=== PATIENT | male | born 1980 | race Caucasian/White ===

== ENCOUNTER 2017-11-19 04:22 | Emergency (ER) | payer BC ==
[2017-11-19] MEDS ORDERED: NS 0.9% 1000 ML* 1,000 ML IV ONE (04:42)
[2017-11-19] MEDS ORDERED: Morphine INJ* 10 MG/ML 1 ML CARPUJECT IV ONE (04:42)
[2017-11-19] MEDS ORDERED: Metoclopramide IV* 5 MG/ML 2 ML VIAL IV ONE (04:42)
[2017-11-19] MEDS ORDERED: Morphine VIAL* 4 MG/ML VIAL (1 ml vial) IV ONE ×2 (05:05→07:31)
[2017-11-19 05:09] LABS: Urine Appearance Clear; Urine Blood Negative (Negative); Urine Color Straw; Urine Ketones Negative (Negative); Urine Protein Negative (Negative); Urine Specific Gravity 1.006 (1.010-1.030); Urine Urobilinogen Negative (Negative)
[2017-11-19 05:31] LABS: ABS Basophils 0.1 10^3/ul (0-0.2); ABS Eosinophils 0.2 10^3/ul (0-0.6); ABS Lymphocytes 1.9 10^3/ul (1.0-4.8); ABS Nucleated RBC 0 10^3/ul; Eosinophil % 1.3 % (0-6); Hematocrit 42 % (42-52); Hemoglobin 13.9 g/dl (14.0-18.0); Lymphocyte % 15.8 % (25-47); Mean Corpuscular HGB Conc 33 g/dl (31-36); Mean Corpuscular Hemoglobin 28 pg (27-31); Mean Corpuscular Volume 84 fL (80-94); Mean Platelet Volume 9.4 um3 (7.4-10.4); Nucleated Red Blood Cells % 0.1; Platelet Count 206 10^3/ul (150-450); Red Blood Count 5.04 10^6/ul (4.0-5.4); Red Cell Distribution Width 14 % (10.5-15); White Blood Count 12.2 10^3/ul (3.5-10.8)
[2017-11-19 05:45] LABS: EGFR Non-African American 97.4 (>60)
[2017-11-19 05:48] LABS: INR 0.94 (0.77-1.02)
[2017-11-19] MEDS ORDERED: Iohexol 300* (CONTRAST) 10 ML SDV IV ONE (06:02)
--- NOTE | 2017-11-19 06:52 | ED ---
Betsy Jacobo Simon, scribed for Tami Macais MD on 11/19/17 at 0538 . Abdominal Pain/Male - HPI Summary HPI Summary: This patient is a 37 year old male presenting to [facility] accompanied by family with a chief complaint of lower abdominal pain rated 8/10 since 2099 last night. Denies N/V/D. Hx diverticulitis and patient states symptoms are similar, Sx once persisted for 1.5 months, had surgery for abscess removal. RLQ tenderness. Dysuria, frequency. Patient reports good appetite. - History of Current Complaint Chief Complaint: EDAbdPain Stated Complaint: ABD PAIN Hx Obtained From: Patient Onset/Duration: Lasting Hours - Since 2099 last night Timing: Constant Severity Initially: Moderate Severity Currently: Moderate Pain Intensity: 7 Pain Scale Used: 0-10 Numeric Location: Discrete At: RLQ Associated Signs And Symptoms: Positive: Urinary Symptoms - Dysuria Similar Episode/Dx As:: Diverticulitis - Allergies/Home Medications Allergies/Adverse Reactions: Allergies Allergy/AdvReac Type Severity Reaction Status Date / Time No Known Allergies Allergy Verified 03/17/13 20:07 Home Medications: Home Medications Cetirizine* [ZyrTEC 10 MG TAB*] 10 mg PO DAILY 11/19/17 [History Confirmed 11/19] PMH/Surg Hx/FS Hx/Imm Hx GI History: Reports: Hx Diverticulosis - Surgical History Surgery Procedure, Year, and Place: Abscess Removal 2009 Infectious Disease History: No Infectious Disease History: Denies: Traveled Outside the [place] in Last 30 Days - Family History Known Family History: Positive: Diabetes - Aunt and Grandfather - Social History Alcohol Use: Occasionally Substance Use Type: Reports: None Smoking Status (MU): Never Smoked Tobacco Review of Systems Positive: Abdominal Pain - RLQ. Negative: Vomiting, Diarrhea, Nausea, Other - Loss of Appetite Positive: dysuria, frequency All Other Systems Reviewed And Are Negative: Yes Physical Exam - Summary Physical Exam Summary: VITAL SIGNS:~Reviewed. GENERAL:~~Patient is a morbidly obese and nourished~MALE~who is lying comfortable in the stretcher. Patient is not in any acute respiratory distress. HEAD AND FACE:~No signs of trauma. No ecchymosis, hematomas or skull depressions. No sinus tenderness. EYES:~PERRLA, EOMI x 2, No injected conjunctiva, no nystagmus. EARS:~Hearing grossly intact. Ear canals and tympanic membranes are within normal limits. MOUTH:~Oropharynx within normal limits. NECK:~Supple, trachea is midline, no adenopathy, no JVD, no carotid bruit, no c- spine tenderness, neck with full ROM. CHEST:~Symmetric, no tenderness at palpation LUNGS:~Clear to auscultation bilaterally. No wheezing or crackles. CVS:~Regular rate and rhythm, S1 and S2 present, no murmurs or gallops appreciated. ABDOMEN:~Soft, tender RLQ. No signs of distention. No rebound no guarding, and no masses palpated. Bowel sounds are normal. EXTREMITIES:~FROM in all major joints, no edema, no cyanosis or clubbing. NEURO:~Alert and oriented x 3. No acute neurological deficits. Speech is normal and follows commands. SKIN:~Dry and warm Triage Information Reviewed: Yes Vital Signs On Initial Exam: Initial Vitals Temp Pulse Resp BP Pulse Ox 97.7 F 85 22 144/75 96 11/19/17 04:30 11/19/17 04:30 11/19/17 04:30 11/19/17 04:30 11/19/17 04:30 Vital Signs Reviewed: Yes Diagnostics - Vital Signs Vital Signs Temp Pulse Resp BP Pulse Ox 11/19/17 04:30 97.7 F 85 22 144/75 96 - Laboratory Result Diagrams: 11/19/17 05:12 11/19/17 05:12 Lab Statement: Any lab studies that have been ordered have been reviewed, and results considered in the medical decision making process. Abdominal Pain Fem Course/Dx - Course Course Of Treatment: This patient is a 37 year old male presenting to [facility] BIB accompanied by family with a chief complaint of lower abdominal pain since 2100 last night. Denies N/V/D. Hx diverticulitis and patient states symptoms are similar, Sx once persisted for 1.5 months, had surgery for abscess removal. RLQ tenderness. Dysuria. Patient reports good appetite. Test results with no significant abnormalities except for WBC of 12.2, CRP 15.94, Na 137. In the ED course the patient was given Morphine sulfate 4mg IV, Reglan IV 10mg, NaCl 1000mls @1000 mls/hr. Pt will be signed on to Dr. Wagner, awaiting CT results and disposition - Diagnoses Provider Diagnoses: Abdominal pain Discharge - Sign-Out/Discharge Documenting (check all that apply): Sign-Out Patient Signing out patient TO: Stevan Wagner - Discharge Plan Referrals: Sayda Barnett DO [Primary Care Provider] - The documentation as recorded by the Betsy delgado Simon accurately reflects the service I personally performed and the decisions made by me, Tami Macias MD.
[2017-11-19 08:06] VITALS: BP 125/65
[2017-11-19] MEDS ORDERED: Levofloxacin TAB* 250 MG PO ONE (08:06)
[2017-11-19] MEDS ORDERED: metroNIDAZOLE TAB* 250 MG PO ONE (08:07)
--- NOTE | 2017-11-19 08:42 | ED ---
Guicho Jacobo Julia, scribed for Stevan Wagner on 11/19/17 at 0713 . Progress - Progress Note Progress Note: This patient is signed out from Dr. Macias awaiting CT A/P and disposition. An A/ P CT reveals, as per radiologist: Mild uncomplicated sigmoid diverticulitis. Fatty Liver. ED Physician has reviewed this report. Course/Dx - Course Course Of Treatment: 37 year old male presenting to [facility] accompanied by family with a chief complaint of lower abdominal pain since 2100 last night. Patient was signed out from Dr. Macias awaiting CT A/P results. CT A/P is indicative of diverticulitis. Patient is informed of results. Patient will be discharged. - Diagnoses Provider Diagnoses: Diverticulitis Discharge - Sign-Out/Discharge Documenting (check all that apply): Receiving Sign-Out Receiving patient FROM: Tami Macias - Discharge Plan Condition: Stable Disposition: HOME Patient Education Materials: Diverticulitis (ED) Referrals: Sayda Barnett DO [Primary Care Provider] - 3 Days (Follow up with your primary care physician. ) The documentation as recorded by the Guicho delgado Julia accurately reflects the service I personally performed and the decisions made by Kristy flaherty Emmanuel.
--- NOTE | 2017-11-19 09:12 | RAD ---
INDICATION: Abdominal pain. History of diverticulitis. COMPARISON: None TECHNIQUE: Axial source images were obtained from the hemidiaphragms to the symphysis pubis following administration of oral and intravenous contrast. 150 mL Omnipaque 300 was utilized. Coronal and sagittal reconstructed images were acquired. Lung bases: The lung bases are clear. Liver: The liver is enlarged with findings of hepatic steatosis. There are no masses. There is no ductal dilatation. Gallbladder: There are no calcified gallstones. There is no evidence of wall thickening or pericholecystic fluid. Spleen: The spleen is normal in size. There are no masses. Pancreas: There is no focal pancreatic mass or ductal dilatation. Adrenal glands: There is no evidence of adrenal mass. Kidneys: The kidneys are normal in size and position. There are prompt nephrograms and there is prompt excretion bilaterally. There are no renal parenchymal masses. There is no evidence of nephrolithiasis. Adenopathy: There is no evidence of adenopathy by size criteria. Fluid collections: Mild perienteric stranding at the level of the sigmoid colon. Vessels:There are no significant atherosclerotic changes involving the aorta. There is no focal aneurysm. The iliac vessels are normal in caliber. The IVC appears normal. GI tract: The upper GI tract is unremarkable. The ileocecal valve, cecum and appendix are normal. There are scattered diverticula throughout the colon most numerous in the sigmoid colon. There is bowel wall thickening with perienteric stranding at the level the sigmoid colon consistent with mild acute diverticulitis. There are no findings of obstruction or perforation. Pelvic organs: The prostate and seminal vesicles appear normal Bladder: There are no bladder masses. Abdominal and pelvic soft tissues: There is a small fat-containing ventral hernia inferior into the right of the umbilicus. Osseous structures: There are no acute osseous findings. Other: None IMPRESSION: CT FINDINGS OF MILD ACUTE DIVERTICULITIS. HEPATOMEGALY WITH HEPATIC STEATOSIS. SMALL FAT-CONTAINING VENTRAL HERNIA.
== END 2017-11-19 08:36 | disposition home or self-care (01) ==
LOC: ED 04:22
DX: R10.30 Lower abdominal pain, unspecified (principal); R10.813 Right lower quadrant abdominal tenderness; R30.0 Dysuria; K57.32 Diverticulitis of large intestine without perforation or abscess without bleeding; K57.30 Diverticulosis of large intestine without perforation or abscess without bleeding; K76.0 Fatty (change of) liver, not elsewhere classified; K43.9 Ventral hernia without obstruction or gangrene; Z87.19 Personal history of other diseases of the digestive system
CPT/HCPCS: 36415; 74177; 80053; 81003; 82150; 83690; 83735; 85025; 85610; 85730; 86140; 96361; 96374; 96375; 96376; 99283; A9270-GY; J2270; J2765; Q9967

== ENCOUNTER 2018-05-31 21:32 | Emergency (ER) | payer BC ==
[2018-05-31] MEDS ORDERED: NS 0.9% 1000 ML* 1,000 ML IV ONE (22:56)
[2018-05-31] MEDS ORDERED: fentaNYL* 50 MCG/ML 2 ML VIAL (100 MCG VIAL) IV SLOW PU ONE (22:56)
[2018-05-31] MEDS ORDERED: Metoclopramide IV* 5 MG/ML 2 ML VIAL IV SLOW PU ONE (22:56)
--- NOTE | 2018-05-31 22:59 | ED ---
Abdominal Pain/Male - HPI Summary HPI Summary: Patient is a 38 y/o M presenting to ED with complaints of diffuse and crampy abdominal pain that onset last night and has progressively worsened. N/V, constipation is denied (last bowel movement a few hours ago), patient reports fever of 100.8 F, measured at home. He notes PMHx of diverticulitis, states first episode eight years ago. Patient reports that at this time, he had an abscess as well. No colostomy, resection done. Second episode was last year, reported to be less severe than first episode. He notes that he took x2 ibuprofen 4-5 hours ago. Patient takes Zyrtec, no other medications. On triage, pain is rated 10/10, nothing is noted to aggravate/alleviate Sx. Home medications and allergies are reviewed. - History of Current Complaint Chief Complaint: EDAbdPain Stated Complaint: ABD PAIN Time Seen by Provider: 05/31/18 22:38 Hx Obtained From: Patient Onset/Duration: Lasting Days - last night, Still Present, Worse Since Timing: Constant, Lasting Days - last night Severity Initially: Moderate Severity Currently: Severe Pain Intensity: 10 Pain Scale Used: 0-10 Numeric - 10/10 Location: Diffuse Radiates: No Character: Cramping Aggravating Factor(s): Nothing Alleviating Factor(s): Nothing Associated Signs And Symptoms: Positive: Fever. Negative: Constipation, Nausea , Vomiting - Allergies/Home Medications Allergies/Adverse Reactions: Allergies Allergy/AdvReac Type Severity Reaction Status Date / Time No Known Allergies Allergy Verified 05/31/18 22:57 Home Medications: Home Medications Cetirizine* [ZyrTEC 10 MG TAB*] 10 mg PO DAILY 05/31/18 [History Confirmed 05/31] PMH/Surg Hx/FS Hx/Imm Hx GI History: Reports: Hx Diverticulosis Sensory History: Denies: Hx Legally Blind, Hx Deafness Opthamlomology History: Denies: Hx Legally Blind EENT History: Denies: Hx Deafness - Surgical History Surgery Procedure, Year, and Place: Abscess Removal 2009 Infectious Disease History: No Infectious Disease History: Denies: Traveled Outside the [place] in Last 30 Days - Family History Known Family History: Positive: Diabetes - Aunt and Grandfather - Social History Alcohol Use: Occasionally Substance Use Type: Reports: None Smoking Status (MU): Never Smoked Tobacco Review of Systems Positive: Fever - reported to be 100.8 F earlier Positive: Abdominal Pain, Other - NEGATIVE - CONSTIPATION . Negative: Vomiting , Nausea All Other Systems Reviewed And Are Negative: Yes Physical Exam - Summary Physical Exam Summary: VITAL SIGNS: Reviewed. GENERAL: Patient is a well-developed and morbidly obese male who is lying comfortable in the stretcher. Patient is not in any acute respiratory distress. HEAD AND FACE: No signs of trauma. No ecchymosis, hematomas or skull depressions. No sinus tenderness. EYES: PERRLA, EOMI x 2, No injected conjunctiva, no nystagmus. EARS: Hearing grossly intact. Ear canals and tympanic membranes are within normal limits. MOUTH: Oropharynx within normal limits. NECK: Supple, trachea is midline, no adenopathy, no JVD, no carotid bruit, no c- spine tenderness, neck with full ROM. CHEST: Symmetric, no tenderness at palpation LUNGS: Clear to auscultation bilaterally. No wheezing or crackles. CVS: Regular rate and rhythm, S1 and S2 present, no murmurs or gallops appreciated. ABDOMEN: Soft, LLQ tenderness. No signs of distention. No rebound no guarding, and no masses palpated. Bowel sounds are normal. EXTREMITIES: FROM in all major joints, no edema, no cyanosis or clubbing. NEURO: Alert and oriented x 3. No acute neurological deficits. Speech is normal and follows commands. SKIN: Dry and warm Triage Information Reviewed: Yes Vital Signs On Initial Exam: Initial Vitals Temp Pulse Resp BP Pulse Ox 100.1 F 88 20 144/73 96 05/31/18 21:39 05/31/18 21:39 05/31/18 21:39 05/31/18 21:39 05/31/18 21:39 Vital Signs Reviewed: Yes Diagnostics - Vital Signs Vital Signs Temp Pulse Resp BP Pulse Ox 05/31/18 22:42 98.8 F 05/31/18 21:39 100.1 F 88 20 144/73 96 - Laboratory Result Diagrams: 05/31/18 23:17 05/31/18 23:17 Lab Statement: Any lab studies that have been ordered have been reviewed, and results considered in the medical decision making process. - CT CT ABD/PEL CT Interpretation Completed By: Radiologist Summary of CT Findings: CT ABD/PEL IMPRESSION: Acute sigmoid colonic diverticulitis. THIS REPORT WAS REVIEWED BY ED PHYSICIAN. Re-Evaluation - Re-Evaluation First Eval Re-Evaluation Time: 01:01 Change: Improved Comment: Patient reports relief in pain. Results of labs and tests were discussed. Patient to be discharged to home and follow up with PCP. He is agreeable with this. Abdominal Pain Fem Course/Dx - Course Course Of Treatment: Patient is a 38 y/o M presenting to ED with complaints of diffuse and crampy abdominal pain that onset last night and has progressively worsened. N/V, constipation is denied (last bowel movement a few hours ago), patient reports fever of 100.8 F, measured at home. He notes PMHx of diverticulitis, states first episode eight years ago. Patient reports that at this time, he had an abscess as well. No colostomy, resection done. Second episode was last year, reported to be less severe than first episode. He notes that he took x2 ibuprofen 4-5 hours ago. On physical exam, LLQ tenderness noted , patient is morbidly obese. Labs showed WBC 11.2, absolute neuts 9.1, INR 1.03 , glucose 124, lactic acid 0.8, magnesium 1.7, CRP 47.37, lipase 10, amylase 43. UA showed 2+ ketones. CT ABD/PEL IMPRESSION: Acute sigmoid colonic diverticulitis. During ED course, patient received fluids, flagyl 500 mg PO ED ONCE ONE, reglan 10 mg IV SLOW PU ONCE ONE, Leaquin 500 mg PO ED ONCE ONE, fentanyl 100 mcg IV SLOW PU ED ONCE ONE. Patient reports relief in pain. Results of labs and tests were discussed. Patient to be discharged to home and follow up with PCP. He is agreeable with this. - Diagnoses Provider Diagnoses: Diverticulitis Discharge - Sign-Out/Discharge Documenting (check all that apply): Patient Departure - Discharge Plan Condition: Stable Disposition: HOME Prescriptions: Levofloxacin TAB* [Levaquin TAB*] 500 mg PO DAILY #7 tab metroNIDAZOLE [Flagyl 500 MG TAB] 500 mg PO TID #20 tab oxyCODONE/Acetamin 5/325 MG* [Percocet 5/325 TAB*] 1 tab PO Q6H PRN #14 tab MDD 4 PRN Reason: Pain Patient Education Materials: Diverticulitis (ED) Referrals: Sayda Barnett DO [Primary Care Provider] - 2 Days Additional Instructions: RETURN TO THE EMERGENCY DEPARTMENT FOR CHANGING OR WORSENING SYMPTOMS. FOLLOW UP WITH PRIMARY CARE PHYSICIAN IN 1-2 DAYS. - Billing Disposition and Condition Condition: STABLE Disposition: Home - Attestation Statements Document Initiated by Buzz: Yes Documenting Scribe: JOHNSON FRAGA Provider For Whom Buzz is Documenting (Include Credential): JANEEN WALDEN MD Scribe Attestation: IJOHNSON , scribed for JANEEN WALDEN MD on 06/01/18 at 0631. Scribe Documentation Reviewed: Yes Provider Attestation: The documentation as recorded by the JOHNSON delgado accurately reflects the service I personally performed and the decisions made by me, JANEEN WALDEN MD Status of Scribe Document: Viewed
[2018-05-31 23:23] LABS: ABS Basophils 0.1 10^3/ul (0-0.2); ABS Eosinophils 0.1 10^3/ul (0-0.6); ABS Lymphocytes 1.4 10^3/ul (1.0-4.8); ABS Monocytes 0.7 10^3/ul (0-0.8); ABS Neutrophils 9.1 10^3/ul (1.5-7.7); ABS Nucleated RBC 0 10^3/ul; Eosinophil % 0.8 %; Hematocrit 42 % (42-52); Hemoglobin 14.2 g/dl (14.0-18.0); Lymphocyte % 12.3 %; Mean Corpuscular HGB Conc 34 g/dl (31-36); Mean Corpuscular Hemoglobin 28 pg (27-31); Mean Corpuscular Volume 84 fL (80-94); Nucleated Red Blood Cells % 0; Platelet Count 211 10^3/ul (150-450); Red Blood Count 5.02 10^6/ul (4.00-5.40); Red Cell Distribution Width 14 % (10.5-15); White Blood Count 11.2 10^3/ul (3.5-10.8)
[2018-05-31 23:31] LABS: INR 1.03 (0.77-1.02)
[2018-05-31 23:43] LABS: EGFR Non-African American 105.1 (>60)
[2018-05-31 23:52] LABS: Urine Appearance Clear; Urine Blood Negative (Negative); Urine Color Yellow; Urine Ketones 2+ (Negative); Urine Protein Negative (Negative); Urine Specific Gravity 1.018 (1.010-1.030); Urine Urobilinogen Negative (Negative)
[2018-06-01] MEDS ORDERED: Iohexol 300* (CONTRAST) 10 ML SDV IV ONE (00:13)
[2018-06-01] MEDS ORDERED: Levofloxacin TAB* 500 MG PO ONE (01:00)
[2018-06-01] MEDS ORDERED: metroNIDAZOLE TAB* 250 MG PO ONE (01:01)
[2018-06-01 01:17] VITALS: BP 103/47
== END 2018-06-01 01:23 | disposition home or self-care (01) ==
LOC: ED 21:32
DX: K57.92 Diverticulitis of intestine, part unspecified, without perforation or abscess without bleeding (principal); R50.9 Fever, unspecified; R10.9 Unspecified abdominal pain
CPT/HCPCS: 36415; 74177; 80053; 81003; 82150; 83605; 83690; 83735; 85025; 85610; 85730; 86140; 87040; 96374; 96375; 99282; A9270-GY; J2765; J3010; Q9967

== ENCOUNTER 2018-06-17 07:35 | Emergency (ER) | payer BC ==
--- NOTE | 2018-06-17 08:46 | ED ---
Abdominal Pain/Male - HPI Summary HPI Summary: Pt here w/ return of lower ab pain/cramping from dx'd diverticulitis 2 weeks ago. 3/, constant dull pain exacerbated by 8/10 cramping pain q 15 mins or more. He denies fever, chills, nausea, vomiting but has had increased bowel movements this morning. Formed but frequent - hurts with passing but relief after. Mild rectal soreness w/ BRB on toilet paper since frequent stools - h/o hemorrhoids. He was seen 05/31 dx'd w/ sigmoid diverticulitis - rx'd levaquin and flagyl for 10 days - sx improved and just returned this morning. Has not taken anything for pain today. Was taking norco for about 1 week - no naroctic withdrawal sx with cessation of norco 1 week ago. Report he was initially ingesting clears x 4 days - advanced to soft foods Friday/Friday - solid foods past 3 days but avoiding typical trigger foods ( ie. nut, legumes, etc) Increased urination past 3 days - no dyrusia, no flank pain. - History of Current Complaint Chief Complaint: EDAbdPain Stated Complaint: ABD PAIN Time Seen by Provider: 06/17/18 08:08 Hx Obtained From: Patient, Family/[employer] - , daughter Pain Intensity: 4 - Allergies/Home Medications Allergies/Adverse Reactions: Allergies Allergy/AdvReac Type Severity Reaction Status Date / Time No Known Allergies Allergy Verified 06/17/18 07:40 PMH/Surg Hx/FS Hx/Imm Hx Previously Healthy: No - diverticulitis Endocrine/Hematology History: Denies: Hx Anticoagulant Therapy GI History: Reports: Hx Diverticulosis - once w/ abscess requiring surgery, Other GI Disorders - hemorrhoids Denies: Hx Cirrhosis, Hx Crohn's Disease, Hx Gall Bladder Disease, Hx Gastroesophageal Reflux Disease, Hx Gastrointestinal Bleed, Hx Hiatal Hernia, Hx Irritable Bowel, Hx Ulcer Sensory History: Denies: Hx Legally Blind, Hx Deafness Opthamlomology History: Denies: Hx Legally Blind - Surgical History Surgery Procedure, Year, and Place: Abscess Removal 2009 Infectious Disease History: No Infectious Disease History: Denies: Traveled Outside the [place] in Last 30 Days - Family History Known Family History: Positive: Diabetes - Aunt and Grandfather - Social History Occupation: Employed Full-time Lives: With Family Alcohol Use: Occasionally Hx Substance Use: No Substance Use Type: Reports: None Hx Tobacco Use: No Smoking Status (MU): Never Smoked Tobacco Review of Systems Constitutional: Negative Negative: Fever, Chills, Fatigue Eyes: Negative ENT: Negative Cardiovascular: Negative Respiratory: Negative Positive: Abdominal Pain Positive: see HPI Musculoskeletal: Negative Skin: Negative Neurological: Negative Psychological: Normal All Other Systems Reviewed And Are Negative: Yes Physical Exam Triage Information Reviewed: Yes Vital Signs On Initial Exam: Initial Vitals Temp Pulse Resp BP Pulse Ox 97.8 F 66 20 134/72 97 06/17/18 07:38 06/17/18 07:38 06/17/18 07:38 06/17/18 07:38 06/17/18 07:38 Vital Signs Reviewed: Yes Appearance: Positive: Well-Appearing, Pain Distress - lying in Rt side, appears uncomfortable, Obese Skin: Positive: Warm, Skin Color Reflects Adequate Perfusion, Dry Head/Face: Positive: Normal Head/Face Inspection Eyes: Positive: EOMI, Conjunctiva Clear - anicteric sclera ENT: Positive: Pharynx normal - mucosa moist Respiratory/Lung Sounds: Positive: Breath Sounds Present Cardiovascular: Positive: Normal Abdomen Description: Positive: Soft, Other: - mild suprapubic region TTP - no rebounding; difficult to assess for distention, hernia, organomegaly d/t body habitus - does not appear to have ascites and no ecchymosis observed. Negative : CVA Tenderness (R), CVA Tenderness (L) Bowel Sounds: Positive: Present Musculoskeletal: Positive: Normal, Strength/ROM Intact Neurological: Positive: Normal, Sensory/Motor Intact, Alert, Oriented to Person Place, Time, CN Intact II-III Psychiatric: Positive: Normal Diagnostics - Vital Signs Vital Signs Temp Pulse Resp BP Pulse Ox 06/17/18 08:05 63 98 06/17/18 07:38 97.8 F 66 20 134/72 97 - Laboratory Result Diagrams: 06/17/18 09:11 06/17/18 09:11 Lab Statement: Any lab studies that have been ordered have been reviewed, and results considered in the medical decision making process. Re-Evaluation - Re-Evaluation First Eval Change: Improved - still has dull ache but cramping improving - less frequent, less intense - would like to try NSAID as well Abdominal Pain Fem Course/Dx - Course Course Of Treatment: Pt returns to ED for what he perceives are early return signs of diverticular pain. He completed his anbx 4 days ago and has been eating solids past 3 days. Frequent BM's started today. Labs and vitals do not indicate worsening inflammation, infection or sepsis. Will restart anbx, return to clears and advise close f/u w/ PCP. Danger s/sx of when to return to ED reviewed w/ pt and family who agree w/ plan. - Diagnoses Provider Diagnoses: Sigmoid diverticulitis Discharge - Sign-Out/Discharge Documenting (check all that apply): Patient Departure - Discharge Plan Condition: Stable Disposition: HOME Prescriptions: Ciprofloxacin TAB* [Cipro 500 MG TAB*] 500 mg PO BID #14 tab metroNIDAZOLE [Flagyl 500 MG TAB] 500 mg PO TID #21 tab Patient Education Materials: Diverticulitis (ED) Forms: *Work Release Referrals: Sayda Barnett DO [Primary Care Provider] - Additional Instructions: You appear to have recurrence of diverticulitis. Your first round of antibiotics only lasted for 10 days and probably should've gone for 2 weeks. An additional week of antibiotics has been prescribed today and you were switched from Levaquin to ciprofloxacin. We will return to Flagyl as well. If you are able to provide a stool sample to your PCP, further testing may be completed to check for c. diff. It is important that you also return to a clear liquid diet until symptoms resolve. He may take ibuprofen alternating with acetaminophen as needed for pain. Follow up with her PCP Friday to recheck symptoms. Call today to schedule an appointment. *If worse in the meantime (i.e. fever, chills, vomiting, diarrhea, worsening abdominal pain worse), return to the emergency department. - Billing Disposition and Condition Condition: STABLE Disposition: Home
[2018-06-17] MEDS ORDERED: Ondansetron ODT TAB* 4 MG PO ONE (08:52)
[2018-06-17] MEDS ORDERED: NS 0.9% 1000 ML* 1,000 ML IV ONE (08:52)
[2018-06-17] MEDS ORDERED: Morphine VIAL* 4 MG/ML VIAL (1 ml vial) IV ONE (08:52)
[2018-06-17 09:28] LABS: ABS Basophils 0.1 10^3/ul (0-0.2); ABS Eosinophils 0.3 10^3/ul (0-0.6); ABS Lymphocytes 1.8 10^3/ul (1.0-4.8); ABS Monocytes 0.4 10^3/ul (0-0.8); ABS Neutrophils 3.8 10^3/ul (1.5-7.7); ABS Nucleated RBC 0 10^3/ul; Eosinophil % 4.3 %; Hematocrit 42 % (42-52); Hemoglobin 13.6 g/dl (14.0-18.0); Mean Corpuscular HGB Conc 33 g/dl (31-36); Mean Corpuscular Hemoglobin 28 pg (27-31); Mean Corpuscular Volume 85 fL (80-94); Mean Platelet Volume 9.5 fL (7.4-10.4); Nucleated Red Blood Cells % 0; Platelet Count 205 10^3/ul (150-450); Red Blood Count 4.88 10^6/ul (4.00-5.40); Red Cell Distribution Width 14 % (10.5-15); White Blood Count 6.3 10^3/ul (3.5-10.8)
[2018-06-17 09:37] LABS: Activated Partial Thrombo Time 33.6 seconds (26.0-36.3); INR 0.94 (0.77-1.02)
[2018-06-17 09:48] LABS: Albumin 3.8 g/dL (3.2-5.2); Albumin/Globulin Ratio 1.2 (1-3); BUN/Creatinine Ratio 13.6 (8-20); C Reactive Protein 5.76 mg/L (<8.01); Calcium 8.6 mg/dL (8.6-10.3); EGFR Non-African American 106.6 (>60); Globulin 3.1 g/dL (2-4); Magnesium 1.9 mg/dL (1.9-2.7); Potassium 4.3 mmol/L (3.5-5.0); Total Bilirubin 0.4 mg/dL (0.2-1.0); Total Protein 6.9 g/dL (6.4-8.9)
[2018-06-17] MEDS ORDERED: Ketorolac INJ* 30 MG/ML 1 ML VIAL IV PUSH ONE (09:58)
[2018-06-17 10:03] LABS: Urine Appearance Clear; Urine Bilirubin Negative (Negative); Urine Blood Negative (Negative); Urine Color Straw; Urine Glucose Negative (Negative); Urine Ketones Negative (Negative); Urine Nitrite Negative (Negative); Urine Protein Negative (Negative); Urine Specific Gravity 1.006 (1.010-1.030); Urine Urobilinogen Negative (Negative)
[2018-06-17 10:10] VITALS: BP 127/57
== END 2018-06-17 10:09 | disposition home or self-care (01) ==
LOC: ED 07:35
DX: K57.32 Diverticulitis of large intestine without perforation or abscess without bleeding (principal)
CPT/HCPCS: 36415; 80053; 81003; 83605; 83690; 83735; 85025; 85610; 85730; 86140; 96361; 96374; 96375; 99282; A9270-GY; J1885; J2270

== ENCOUNTER 2018-06-20 22:51 | Inpatient (IN) | payer BC ==
[2018-06-20] MEDS ORDERED: Morphine VIAL* 4 MG/ML VIAL (1 ml vial) IV ONE (23:22)
[2018-06-20] MEDS ORDERED: Ondansetron INJ* 2 MG/ML VIAL IV ONE (23:22)
[2018-06-20] MEDS ORDERED: NS 0.9% 1000 ML* 2,000 ML IV ONE (23:22)
--- NOTE | 2018-06-20 23:27 | ED ---
Abdominal Pain/Male - HPI Summary HPI Summary: This patient is a 38 year old M presenting to [facility] accompanied by his with a chief complaint of progressively worsening lower abdominal pain since this morning with vomiting this evening. He additionally reports chills this evening and recent decreased appetite. Patient suspects his symptoms are due to a diverticulitis flare up as he has a previous history of diverticulitis and abdominal abscess break requiring surgery roughly nine years ago. Patient was seen in the Emergency Department three days ago for similar but less severe symptoms. He was treated was abx and symptoms improved until earlier today. Patient reports pain as 9/10 in severity. Patient denies diarrhea. Patient denies PMHx besides diverticulitis. - History of Current Complaint Chief Complaint: EDAbdPain Stated Complaint: ABD PAIN/VOMITING Hx Obtained From: Patient Onset/Duration: Gradual Onset, Lasting Hours Timing: Constant Pain Intensity: 9 Pain Scale Used: 0-10 Numeric Location: Diffuse - lower abdomen Alleviating Factor(s): Nothing Associated Signs And Symptoms: Positive: Decreased Appetite, Vomiting, Other - chills. Negative: Diarrhea - Allergies/Home Medications Allergies/Adverse Reactions: Allergies Allergy/AdvReac Type Severity Reaction Status Date / Time No Known Allergies Allergy Verified 06/17/18 07:40 PMH/Surg Hx/FS Hx/Imm Hx Endocrine/Hematology History: Denies: Hx Anticoagulant Therapy GI History: Reports: Hx Diverticulosis - once w/ abscess requiring surgery, Other GI Disorders - hemorrhoids Denies: Hx Cirrhosis, Hx Crohn's Disease, Hx Gall Bladder Disease, Hx Gastroesophageal Reflux Disease, Hx Gastrointestinal Bleed, Hx Hiatal Hernia, Hx Irritable Bowel, Hx Ulcer Sensory History: Denies: Hx Legally Blind, Hx Deafness Opthamlomology History: Denies: Hx Legally Blind - Surgical History Surgery Procedure, Year, and Place: Abscess Removal 2009 Infectious Disease History: No Infectious Disease History: Denies: Traveled Outside the [place] in Last 30 Days - Family History Known Family History: Positive: Diabetes - Aunt and Grandfather - Social History Alcohol Use: Occasionally Hx Substance Use: No Substance Use Type: Reports: None Hx Tobacco Use: No Smoking Status (MU): Never Smoked Tobacco Review of Systems Positive: Chills Positive: Abdominal Pain, Vomiting. Negative: Diarrhea All Other Systems Reviewed And Are Negative: Yes Physical Exam - Summary Physical Exam Summary: Appearance: morbidly obese man; appears in pain Skin: Warm, dry, no obvious rash Eyes: sclera anicteric, no conjunctival pallor ENT: mucous membranes moist, pharynx appears normal Neck: Supple, nontender Respiratory: Clear to auscultation, no signs of respiratory distress Cardiovascular: Normal S1, S2. No murmurs. Normal distal pulses in tibial and radial bilaterally. Abdomen: Soft normal active bowel sounds present, midline surgical scar from prior diverticular surgery, diffuse lower abdominal tenderness with some guarding Musculoskeletal: Normal, Strength/ROM Intact Neurological: A&Ox3, awake and alert, mentation is normal, speech is fluent and appropriate Psychiatric: affect is normal, does not appear anxious or depressed Triage Information Reviewed: Yes Vital Signs On Initial Exam: Initial Vitals Temp Pulse Resp BP Pulse Ox 98.0 F 82 18 123/67 96 06/20/18 22:57 06/20/18 22:57 06/20/18 22:57 06/20/18 22:57 06/20/18 22:57 Vital Signs Reviewed: Yes Diagnostics - Vital Signs Vital Signs Temp Pulse Resp BP Pulse Ox 06/20/18 22:57 98.0 F 82 18 123/67 96 - Laboratory Result Diagrams: 06/22/18 06:49 06/22/18 06:50 Lab Statement: Any lab studies that have been ordered have been reviewed, and results considered in the medical decision making process. - CT CT A/P CT Interpretation Completed By: Radiologist Summary of CT Findings: 1. Acute sigmoid diverticulitis. 2. There is no significant interval change from the previous study. Re-Evaluation - Re-Evaluation 1 Re-Evaluation Time: 01:42 Change: Unchanged - Pt informed of results Abdominal Pain Fem Course/Dx - Course Course Of Treatment: 38 year old M presenting with worsening lower abdominal pain since this morning with vomiting this evening. He additionally reports chills this evening and recent decreased appetite. Patient suspects his symptoms are due to a diverticulitis flare up as he has a previous history of diverticulitis and abdominal abscess break requiring surgery roughly nine years ago. Patient was seen in the Emergency Department three days ago for similar but less severe symptoms. He was treated was abx and symptoms improved until earlier today. Patient was given Zofran and Morphine. Bloodwork and UA are unremarkable. A CT A/P reveals, "1. Acute sigmoid diverticulitis. 2. There is no significant interval change from the previous study. ". Patient is informed of results. Patient is admitted by the hospitalist at 0150. - Diagnoses Provider Diagnoses: Sigmoid diverticulitis - Provider Notifications Discussed Care Of Patient With: Brittany Henson - hospitalist Time Discussed With Above Provider: 01:50 Instructed by Provider To: Admit As Inpatient Discharge - Sign-Out/Discharge Documenting (check all that apply): Patient Departure - admitted - Discharge Plan Condition: Improved Disposition: ADMITTED TO [facility] - Billing Disposition and Condition Condition: IMPROVED Disposition: Admitted to [facility] - Attestation Statements Document Initiated by Buzz: Yes Documenting Scribe: Skylar Lindo Provider For Whom Buzz is Documenting (Include Credential): Payam Norris MD [employer] Attestation: Skylar Jacobo, randalled for Payam Norris MD on 06/23/18 at 1416. Scribe Documentation Reviewed: Yes Provider Attestation: The documentation as recorded by the Skylar delgado accurately reflects the service I personally performed and the decisions made by Payam flaherty MD Status of [employer] Document: Viewed
[2018-06-20 23:34] LABS: ABS Basophils 0.1 10^3/ul (0-0.2); ABS Eosinophils 0.2 10^3/ul (0-0.6); ABS Lymphocytes 1.8 10^3/ul (1.0-4.8); ABS Monocytes 0.7 10^3/ul (0-0.8); ABS Neutrophils 7.6 10^3/ul (1.5-7.7); ABS Nucleated RBC 0 10^3/ul; Eosinophil % 1.9 %; Hematocrit 43 % (42-52); Hemoglobin 14.5 g/dl (14.0-18.0); Lymphocyte % 17.5 %; Mean Corpuscular HGB Conc 33 g/dl (31-36); Mean Corpuscular Hemoglobin 28 pg (27-31); Mean Corpuscular Volume 85 fL (80-94); Mean Platelet Volume 9.2 fL (7.4-10.4); Nucleated Red Blood Cells % 0; Platelet Count 212 10^3/ul (150-450); Red Blood Count 5.12 10^6/ul (4.00-5.40); Red Cell Distribution Width 14 % (10.5-15); White Blood Count 10.4 10^3/ul (3.5-10.8)
[2018-06-20 23:50] LABS: Albumin/Globulin Ratio 1.3 (1-3); Calcium 8.9 mg/dL (8.6-10.3); EGFR Non-African American 90.9 (>60); Globulin 3.2 g/dL (2-4); Potassium 3.8 mmol/L (3.5-5.0); Total Bilirubin 0.6 mg/dL (0.2-1.0); Total Protein 7.2 g/dL (6.4-8.9)
[2018-06-21] MEDS ORDERED: Iohexol 300* (CONTRAST) 10 ML SDV IV ONE (00:21)
[2018-06-21] MEDS ORDERED: Morphine VIAL* 4 MG/ML VIAL (1 ml vial) IV ONE (01:54)
[2018-06-21 02:38] LABS: Urine Appearance Clear; Urine Bilirubin Negative (Negative); Urine Blood Negative (Negative); Urine Color Yellow; Urine Glucose Negative (Negative); Urine Ketones Negative (Negative); Urine Nitrite Negative (Negative); Urine Protein Negative (Negative); Urine Specific Gravity 1.047 (1.010-1.030); Urine Urobilinogen Negative (Negative)
[2018-06-21] MEDS ORDERED: Al Hydrox/Mg Hydrox/Simet LIQ* 30 ML UDC ONE (02:42)
[2018-06-21] MEDS ORDERED: Ondansetron INJ* 2 MG/ML VIAL IV PRN (02:46)
[2018-06-21] MEDS ORDERED: Zosyn 3.375 GM IV - ED ONCE IVPB ONE ×2 (03:00)
[2018-06-21] MEDS ORDERED: Zosyn per Pharmacy* NOTE FOLLOW UP PRN (03:01)
[2018-06-21] MEDS ORDERED: hydrALAZINE IV* 20 MG/ML VIAL IV SLOW PU PRN (03:32)
[2018-06-21] MEDS: Morphine VIAL* 4 MG/ML VIAL (1 ml vial) IV PRN ×4 (04:12→19:48)
[2018-06-21] MEDS: NS 0.9% 1000 ML* 1,000 ML IV SCH (04:54)
--- NOTE | 2018-06-21 05:23 | ADMNOTE ---
Subjective Date of Service: 06/21/18 Interval History: code status this is admission h/p hpi this is a 38 yr old morbid obesity kiel on cpap hx of recurrent diverticulits was recently treated here second time with levaquin/flagyl since 06/17 presented to er due to worsening llq pain with one episode of n/v low grade temp to 99---> intial wbc wnl but ct showed sig diverticulitis with no abscess or microperf. er decided to start iv zosyn since pt still has llq despite second round of abx. pt was first treated with po levaquin/flagyl from 06/01-06/11 felt better but his abd pain recurred on ---> came here no imaging test done but was sent home with levauin and flagyl hx of diverticulitis with perf with abscess drained on the rlq in 2009 locally in [place] his abd pain is localized on the llq intermittant crampy pain intensity could go up to 8-9/10 pain med made it better but he did not notice anything made it worse phx morbid obesity kiel on cpap and compliant recurrent diverticulitis pshx right lower colon abscess drained 2009 social hx no cig no etoh Review of Systems - Measurements Intake and Output: Intake and Output Last 24 Hours 06/18/18 06/19/18 06/20/18 06/21/18 06:59 06:59 06:59 06:59 Weight 368 lb 11.2 oz pertinent as per hpi Objective Active Medications: Cetirizine HCl (Zyrtec*) 10 mg PO DAILY [facility]AIL; Protocol Hydralazine HCl (Apresoline Iv*) 5 mg IV SLOW PU Q6H PRN PRN Reason: BLOOD PRESSURE Sodium Chloride (Ns 0.9% 1000 Ml*) 1,000 mls @ 125 mls/hr IV PER RATE ABIGAIL Last Admin: 06/21/18 04:54 Dose: 125 mls/hr Piperacillin Sod/Tazobactam (Sod 3.375 gm/ Sodium Chloride) 100 mls @ 25 mls/ hr IVPB Q8H ABIGAIL Morphine Sulfate (Morphine Vial*) 1 mg IV Q4H PRN PRN Reason: PAIN Last Admin: 06/21/18 04:12 Dose: 1 mg Ondansetron HCl (Zofran Inj*) 4 mg IV Q6H PRN PRN Reason: NAUSEA Pharmacy Consult (Zosyn Per Pharmacy*) 1 note FOLLOW UP . PRN PRN Reason: PER PROTOCOL Vital Signs - 8 hr 06/20/18 06/20/18 06/20/18 22:57 23:42 23:44 Temperature 98.0 F Pulse Rate 82 66 Respiratory 18 16 Rate Blood Pressure 123/67 158/84 (mmHg) O2 Sat by Pulse 96 98 Oximetry 06/20/18 06/20/18 06/21/18 23:50 23:57 00:00 Temperature Pulse Rate 62 64 73 Respiratory Rate Blood Pressure (mmHg) O2 Sat by Pulse 98 98 98 Oximetry 06/21/18 06/21/18 06/21/18 00:14 00:44 01:23 Temperature Pulse Rate 64 64 72 Respiratory Rate Blood Pressure 157/82 163/81 (mmHg) O2 Sat by Pulse 93 96 97 Oximetry 06/21/18 06/21/18 06/21/18 01:44 02:00 02:14 Temperature Pulse Rate 65 72 Respiratory 16 Rate Blood Pressure 151/83 (mmHg) O2 Sat by Pulse 97 96 Oximetry 06/21/18 06/21/18 06/21/18 02:32 02:44 03:00 Temperature Pulse Rate 82 78 77 Respiratory Rate Blood Pressure 151/83 175/84 (mmHg) O2 Sat by Pulse 91 92 94 Oximetry 06/21/18 06/21/18 06/21/18 03:20 03:39 04:12 Temperature 98.3 F 98 F Pulse Rate 77 77 Respiratory 20 18 20 Rate Blood Pressure 116/66 175/84 (mmHg) O2 Sat by Pulse 95 94 Oximetry Oxygen Devices in Use Now: None Appearance: nad Eyes: No Scleral Icterus, PERRLA Ears/Nose/Mouth/Throat: NL Teeth, Lips, Gums, Clear Oropharnyx, Mucous Membranes Moist Neck: NL Appearance and Movements; NL JVP, Trachea Midline, No Thyroid Enlargement, Masses Respiratory: Symmetrical Chest Expansion and Respiratory Effort, Clear to Auscultation Cardiovascular: NL Sounds; No Murmurs; No JVD, RRR Abdominal: - - + bs overall soft abd morbid obese abd, llq tenderness upon deep palpation but no rebound not guarding Extremities: No Edema, No Clubbing, Cyanosis, - - able to raise ue and le against gravity Skin: No Rash or Ulcers Neurological: Alert and Oriented x 3, NL Sensation, NL Muscle Strength and Tone Result Diagrams: 06/20/18 23:27 06/20/18 23:27 Assess/Plan/Problems-Billing Assessment: 38 yr old morbid obese male presented with recurrent sig diverticulitis despite of abx treatment second time ---> ct of abd did not reveal abscess wbc wnl abx was changed to iv zosyn since he has recurrent llq despite of levaquin and flagyl - Patient Problems (1) Sigmoid diverticulitis Current Visit: Yes Status: Acute Code(s): K57.32 - DVTRCLI OF LG INT W/O PERFORATION OR ABSCESS W/O BLEEDING SNOMED Code(s): 983682261 Comment: no wbc with stable ct npo except meds no surgery consult yet abx changed from levaquin and flagyl to iv zosyn as pe er ---> will continue as this point (2) LLQ abdominal pain Current Visit: Yes Status: Acute Code(s): R10.32 - LEFT LOWER QUADRANT PAIN SNOMED Code(s): 154382413 Comment: morphine 1 mg q 4 prn due to concern of co2 retention due to his kiel pt verbazlized understanding and agrees reg this (3) Morbid obesity Current Visit: Yes Status: Acute Code(s): E66.01 - MORBID (SEVERE) OBESITY DUE TO EXCESS CALORIES SNOMED Code(s): 998165022 Comment: supportive care as toleated tele with pulse ox montiering due to concern of co2 retention (4) KIEL (obstructive sleep apnea) Current Visit: Yes Status: Acute Code(s): G47.33 - OBSTRUCTIVE SLEEP APNEA ( ADULT) (PEDIATRIC) SNOMED Code(s): 14135187 Comment: cpap as tolerated at night (5) HTN (hypertension) Current Visit: Yes Status: Acute Code(s): I10 - ESSENTIAL (PRIMARY) HYPERTENSION SNOMED Code(s): 29526427 Comment: this could have pain as a component as well iv morphine and iv hydralazine prn (6) DVT prophylaxis Current Visit: Yes Status: Acute Code(s): FCP1311 - SNOMED Code(s): 765631834 Comment: as per hospital protocol (7) Full code status Current Visit: Yes Status: Acute Code(s): Z78.9 - OTHER SPECIFIED HEALTH STATUS SNOMED Code(s): 157716616
[2018-06-21] MEDS: Piperacillin/Tazobac ADVAN(*) 3.375 GM in NS 0.9% 100 ML* 100 ML IVPB SCH ×2 (07:50→15:48)
[2018-06-21] MEDS: Cetirizine* 10 MG TAB PO SCH (10:12)
--- NOTE | 2018-06-21 21:19 | PN ---
Subjective Date of Service: 06/21/18 Interval History: abd pain unchanged , continues to c/o left sided lower abd pain , loose stools, nausea. Denies chest pain or shortness of breath. denies vomiting. denies black or tarry stools Family History: Unchanged from Admission Social History: Unchanged from Admission Past Medical History: Unchanged from Admission Objective Active Medications: Cetirizine HCl (Zyrtec*) 10 mg PO DAILY ABIGAIL; Protocol Last Admin: 06/21/18 10:12 Dose: 10 mg Hydralazine HCl (Apresoline Iv*) 5 mg IV SLOW PU Q6H PRN PRN Reason: BLOOD PRESSURE Sodium Chloride (Ns 0.9% 1000 Ml*) 1,000 mls @ 125 mls/hr IV PER RATE ABIGAIL Last Admin: 06/21/18 04:54 Dose: 125 mls/hr Piperacillin Sod/Tazobactam (Sod 3.375 gm/ Sodium Chloride) 100 mls @ 25 mls/ hr IVPB Q8H ABIGAIL Last Admin: 06/21/18 15:48 Dose: 25 mls/hr Morphine Sulfate (Morphine Vial*) 2 mg IV Q4H PRN PRN Reason: PAIN Last Admin: 06/21/18 19:48 Dose: 2 mg Ondansetron HCl (Zofran Inj*) 4 mg IV Q6H PRN PRN Reason: NAUSEA Last Admin: 06/21/18 19:47 Dose: 4 mg Pharmacy Consult (Zosyn Per Pharmacy*) 1 note FOLLOW UP . PRN PRN Reason: PER PROTOCOL Vital Signs - 8 hr 06/21/18 06/21/18 06/21/18 15:45 16:27 19:34 Temperature 98.0 F Pulse Rate 68 Respiratory 16 10 20 Rate Blood Pressure 129/70 (mmHg) O2 Sat by Pulse 98 Oximetry 06/21/18 19:48 Temperature Pulse Rate Respiratory 20 Rate Blood Pressure (mmHg) O2 Sat by Pulse Oximetry Oxygen Devices in Use Now: None Appearance: alert and oriented resting in bed, no acute distress Eyes: No Scleral Icterus Ears/Nose/Mouth/Throat: Clear Oropharnyx, Mucous Membranes Moist Neck: NL Appearance and Movements; NL JVP, Trachea Midline Respiratory: Symmetrical Chest Expansion and Respiratory Effort, Clear to Auscultation Cardiovascular: NL Sounds; No Murmurs; No JVD, No Edema Abdominal: - - soft BS +x4, tenderness with palpation to left lower abd Extremities: No Edema, No Clubbing, Cyanosis Skin: No Rash or Ulcers Neurological: Alert and Oriented x 3 Nutrition: Taking PO's Result Diagrams: 06/20/18 23:27 06/20/18 23:27 Assess/Plan/Problems-Billing Assessment: 38 yr old morbid obese male presented with recurrent sig diverticulitis despite of abx treatment second time ---> ct of abd did not reveal abscess wbc wnl abx was changed to iv zosyn since he has recurrent llq despite of levaquin and flagyl - Patient Problems (1) Sigmoid diverticulitis Current Visit: Yes Status: Acute Code(s): K57.32 - DVTRCLI OF LG INT W/O PERFORATION OR ABSCESS W/O BLEEDING SNOMED Code(s): 119175177 Comment: no wbc with stable ct clear liquids continue zosyn repeat cbc and bmp in the AM (2) Morbid obesity Current Visit: Yes Status: Acute Code(s): E66.01 - MORBID (SEVERE) OBESITY DUE TO EXCESS CALORIES SNOMED Code(s): 726052209 Comment: supportive care (3) KIEL (obstructive sleep apnea) Current Visit: Yes Status: Acute Code(s): G47.33 - OBSTRUCTIVE SLEEP APNEA ( ADULT) (PEDIATRIC) SNOMED Code(s): 34620894 Comment: cpap as tolerated at night (4) DVT prophylaxis Current Visit: Yes Status: Acute Code(s): ZCZ2096 - SNOMED Code(s): 553724487 Comment: SCd's (5) Full code status Current Visit: Yes Status: Acute Code(s): Z78.9 - OTHER SPECIFIED HEALTH STATUS SNOMED Code(s): 864161073 Status and Disposition: discharge home when medically stable
[2018-06-22] MEDS: NS 0.9% 1000 ML* 1,000 ML IV SCH (00:10)
[2018-06-22] MEDS: Piperacillin/Tazobac ADVAN(*) 3.375 GM in NS 0.9% 100 ML* 100 ML IVPB SCH ×4 (00:11→23:16)
[2018-06-22] MEDS: Morphine VIAL* 4 MG/ML VIAL (1 ml vial) IV PRN ×2 (00:11→23:23)
[2018-06-22 07:09] LABS: ABS Basophils 0 10^3/ul (0-0.2); ABS Eosinophils 0.1 10^3/ul (0-0.6); ABS Lymphocytes 1.6 10^3/ul (1.0-4.8); ABS Monocytes 0.5 10^3/ul (0-0.8); ABS Neutrophils 4.5 10^3/ul (1.5-7.7); ABS Nucleated RBC 0 10^3/ul; Hematocrit 39 % (42-52); Hemoglobin 12.8 g/dl (14.0-18.0); Lymphocyte % 23.4 %; Mean Corpuscular HGB Conc 33 g/dl (31-36); Mean Corpuscular Hemoglobin 28 pg (27-31); Mean Corpuscular Volume 85 fL (80-94); Mean Platelet Volume 9.5 fL (7.4-10.4); Nucleated Red Blood Cells % 0.1; Platelet Count 165 10^3/ul (150-450); Red Blood Count 4.54 10^6/ul (4.00-5.40); Red Cell Distribution Width 14 % (10.5-15); White Blood Count 6.8 10^3/ul (3.5-10.8)
[2018-06-22 07:24] LABS: BUN/Creatinine Ratio 9.6 (8-20); Calcium 8.3 mg/dL (8.6-10.3); EGFR Non-African American 103.7 (>60); Potassium 3.7 mmol/L (3.5-5.0)
[2018-06-22] MEDS: Cetirizine* 10 MG TAB PO SCH (08:11)
--- NOTE | 2018-06-22 20:09 | PN ---
Subjective Date of Service: 06/22/18 Interval History: patient reports that he is feeling better, states that lower abd pain has improved. Denies fever or chills overnight. tolerating po fluids. Denies n/v. reports loose stools yellow no black or tarry stools. denies chest pain or shortness of breath Family History: Unchanged from Admission Social History: Unchanged from Admission Past Medical History: Unchanged from Admission Objective Active Medications: Cetirizine HCl (Zyrtec*) 10 mg PO DAILY [facility]; Protocol Last Admin: 06/22/18 08:11 Dose: 10 mg Hydralazine HCl (Apresoline Iv*) 5 mg IV SLOW PU Q6H PRN PRN Reason: BLOOD PRESSURE Sodium Chloride (Ns 0.9% 1000 Ml*) 1,000 mls @ 125 mls/hr IV PER RATE [facility] Last Admin: 06/22/18 00:10 Dose: 125 mls/hr Piperacillin Sod/Tazobactam (Sod 3.375 gm/ Sodium Chloride) 100 mls @ 25 mls/ hr IVPB Q8H [facility] Last Admin: 06/22/18 16:15 Dose: 25 mls/hr Morphine Sulfate (Morphine Vial*) 2 mg IV Q4H PRN PRN Reason: PAIN Last Admin: 06/22/18 00:11 Dose: 2 mg Ondansetron HCl (Zofran Inj*) 4 mg IV Q6H PRN PRN Reason: NAUSEA Last Admin: 06/21/18 19:47 Dose: 4 mg Pharmacy Consult (Zosyn Per Pharmacy*) 1 note FOLLOW UP . PRN PRN Reason: PER PROTOCOL Oxygen Devices in Use Now: None Appearance: appears comfotable resting in bed. no acute distress Eyes: No Scleral Icterus Ears/Nose/Mouth/Throat: Clear Oropharnyx, Mucous Membranes Moist Neck: NL Appearance and Movements; NL JVP, Trachea Midline Respiratory: Symmetrical Chest Expansion and Respiratory Effort, Clear to Auscultation Cardiovascular: NL Sounds; No Murmurs; No JVD, No Edema Abdominal: - - soft, bs present x 4 , mild tenderness with palpation to left lower abd . Extremities: No Edema, No Clubbing, Cyanosis Skin: No Rash or Ulcers Neurological: Alert and Oriented x 3 Nutrition: Taking PO's Result Diagrams: 06/22/18 06:49 06/22/18 06:50 Microbiology and Other Data: Microbiology 06/21/18 03:16 Aerobic Blood Culture - Preliminary Blood Venous No Growth Day 1 Anaerobic Blood Culture - Preliminary No Growth Day 1 06/21/18 03:16 Aerobic Blood Culture - Preliminary Blood Venous No Growth Day 1 Anaerobic Blood Culture - Preliminary No Growth Day 1 Assess/Plan/Problems-Billing Assessment: 38 yr old morbid obese male presented with recurrent sig diverticulitis despite of abx treatment second time ---> ct of abd did not reveal abscess wbc wnl abx was changed to iv zosyn since he has recurrent llq despite of levaquin and flagyl - Patient Problems (1) Sigmoid diverticulitis Current Visit: Yes Status: Acute Code(s): K57.32 - DVTRCLI OF LG INT W/O PERFORATION OR ABSCESS W/O BLEEDING SNOMED Code(s): 071316299 Comment: normal wbc CT abd /pelvis - no abscess or free air clear liquids tolerating well - will advance diet today to soft continue zosyn for now - given this is second episode of diverticulitis this month, symptoms did improve while taking levaquin and flagyl but return within a week of finishing oral antiobiotics. small of loose yellow stool stoday, no black or tarry stools no blood noted per patient (2) Morbid obesity Current Visit: Yes Status: Acute Code(s): E66.01 - MORBID (SEVERE) OBESITY DUE TO EXCESS CALORIES SNOMED Code(s): 171898247 Comment: supportive care (3) KIEL (obstructive sleep apnea) Current Visit: Yes Status: Acute Code(s): G47.33 - OBSTRUCTIVE SLEEP APNEA ( ADULT) (PEDIATRIC) SNOMED Code(s): 80734995 Comment: cpap as tolerated at night (4) DVT prophylaxis Current Visit: Yes Status: Acute Code(s): JRY1459 - SNOMED Code(s): 765227416 Comment: SCd's (5) Full code status Current Visit: Yes Status: Acute Code(s): Z78.9 - OTHER SPECIFIED HEALTH STATUS SNOMED Code(s): 465848390 Status and Disposition: discharge home when medically stable
[2018-06-23] MEDS: Piperacillin/Tazobac ADVAN(*) 3.375 GM in NS 0.9% 100 ML* 100 ML IVPB SCH (08:52)
[2018-06-23] MEDS: Cetirizine* 10 MG TAB PO SCH (08:52)
[2018-06-23 12:15] VITALS: BP 127/61
--- NOTE | 2018-06-23 21:00 | DS ---
CC: Dr. Sayda Barnett * DISCHARGE SUMMARY: DATE OF ADMISSION: 06/21/18 DATE OF DISCHARGE: 06/23/18 PRIMARY CARE PROVIDER: Dr. Sayda Barnett. ATTENDING PHYSICIAN: Dr. Beti Daley * (dictated by Sophia Schaefer NP). PRIMARY DIAGNOSIS: 1. Recurrent sigmoid diverticulitis, with failed outpatient treatment. SECONDARY DIAGNOSES: 1. Morbid obesity. 2. Obstructive sleep apnea, on CPAP. STUDIES WHILE IN THE HOSPITAL: 1. Abdomen and pelvis CT on 06/20/18, reads as acute sigmoid diverticulitis. There is no significant interval change from the previous studies on 06/01/18. HISTORY OF PRESENT ILLNESS AND HOSPITAL COURSE: Mr. Main is a 38-year-old male with past medical history of morbid obesity, obstructive sleep apnea, and recurrent diverticulitis, who presented to the emergency room on 06/20/18 with complaints of lower abdominal pain and nausea. Please see the history and physical by Dr. Henson for a complete summary of the events leading up to this hospitalization. In short, the patient had been treated for diverticulitis with Levaquin and Flagyl from 06/01/18 to 06/11/18. He was feeling better, though his pain returned on 06/17/18, at which time he returned to the emergency room and was placed on Cipro and Flagyl. He returned home, though noted that his symptoms were not improving and so he presented to the emergency room. He reported 8/10 pain at that time. In the emergency room, the patient was noted to have unremarkable labs. He had a CT as noted above, which showed acute diverticulitis. He was admitted by the hospitalist service for recurrent diverticulitis, failing outpatient treatment. The patient was placed on Zosyn. He was placed on a clear liquid diet on admission which he tolerated well. On 06/22/18 the patient reported improved abdominal pain. He was advanced to a soft diet, which he tolerated well. As of today, the patient reports feeling well. He denies abdominal pain. He does report some cramping with bowel movements. He denies any diarrhea, nausea, or vomiting. He is anxious to return to home. Mr. Main is stable for discharge today. Vital signs are as follows: Temp 98.5 , heart rate 67, respiratory rate 18, oxygen saturation 98% on room air, blood pressure 127/61. DISCHARGE MEDICATIONS: New medication: 1. Augmentin 875 mg p.o. q.8 hours x11 days. Continued medication: 1. Cetirizine 10 mg p.o. daily. Discontinued medications: 1. Cipro. 2. Flagyl. DISCHARGE PLAN: Mr. Main will be discharged to home. Activity will be as tolerated. Diet will be soft initially. He has been advised to slowly advance his diet as tolerated. Medications are noted above. The patient has been prescribed an 11-day course of Augmentin to complete a total of 14 days of antibiotic therapy. He did respond well to Zosyn, so I anticipate he will respond well to the Augmentin. He has been advised to stop taking any remaining antibiotics that he may have at home. He will need to follow up with his primary care provider in 4 to 7 days. He has been provided with a work release dating back to 06/17/18 when his symptoms recurred. The patient has been advised to return to the emergency room or nearest hospital for any worsening symptoms, shortness of breath, lightheadedness, dizziness, chest discomfort, high fevers, chills, night sweats, loss of consciousness, or any other worrisome signs or symptoms. This is a summarized report of a complex medical history and hospital stay. For further details, please see the entire medical record. TIME SPENT: Approximately 40 minutes was spent on this discharge. SOPHIA SCHAEFER, RADIO FREQUENCY ENGINEER [id number]/[facility] #: [id number] [facility]
== END 2018-06-23 13:10 | disposition home or self-care (01) | DRG 244 ==
LOC: ED 22:51 → MED 06-21 02:33 → ED 06-21 03:41 → OBSVTOIN 06-22 18:01
PROVIDERS: ADMIT Internal Medicine; ATTEND Internal Medicine
DX: K57.32 Diverticulitis of large intestine without perforation or abscess without bleeding (principal); N17.9 Acute kidney failure, unspecified; Z68.43 Body mass index [BMI] 50.0-59.9, adult; E66.01 Morbid (severe) obesity due to excess calories; G47.33 Obstructive sleep apnea (adult) (pediatric); E86.0 Dehydration; I10 Essential (primary) hypertension; Z79.899 Other long term (current) drug therapy
CPT/HCPCS: 36415; 74177; 80048; 80053; 81003; 83605; 83690; 85025; 87040; 94660; 99284; A9270-GY; G0378; J2270; J2405; J2543; Q9967

== ENCOUNTER 2018-07-07 08:05 | Emergency (ER) | payer BC ==
--- NOTE | 2018-07-07 09:25 | ED ---
Abdominal Pain/Male - HPI Summary HPI Summary: Patient presents with return of abdominal pain. He has been seen multiple times in the ED throughout the month of May 2018 for acute sigmoid diverticulitis. Has had 2 CT scans w/ contrast, unchanged despite anbx. His first visit revealed divert - d/c'd w/ cipro and flagyl x 10 days. [place] worse a few days after completing and returned to ED. His second visit where sx were starting to worsen, he was returned to levaquin and flagyl for an additional week His third visit he reports he started to feel better on anbx but only 3 days in , developed return of sx - was admitted and placed on zosyn - repeat CT showed continued sigmoid diverticulitis. He was d/c'd after a couple of days and sent home on anbx. He completed these 3 days ago. Has been feeling a little worse each day since (ab pain, reduced eva - no fever, chills, N/V/D) - still eating soft foods -no pain w/ eating. He states he was seen yesterday for GI consult and they told him if his symptoms persist he needs to be seen by general surgery. He states he was not provided with a referral yesterday and so decided to come here. Denies fever, chills, severe abdominal pain, nausea, vomiting, diarrhea, change in bowel or bladder habits. He has been able to eat and drink without pain however he reports his appetite is quite reduced. Last ate at 1830 last night and went to bed at 2030 due to not feeling well. Previous surgery for diverticular abscess removal - pt reports no complications anesthesia Sleep apnea - per pt, uses CPAP successfully No history of cardiac issues No bleeding disorders Takes an antihistamine daily - otherwise no medications Denies dental work - History of Current Complaint Chief Complaint: EDAbdPain Stated Complaint: ABD PAIN Time Seen by Provider: 07/07/18 08:19 Hx Obtained From: Patient, Family/Biomedical Service Engineer - , daughter Pain Intensity: 4 - Allergies/Home Medications Allergies/Adverse Reactions: Allergies Allergy/AdvReac Type Severity Reaction Status Date / Time No Known Allergies Allergy Verified 07/07/18 08:17 PMH/Surg Hx/FS Hx/Imm Hx Previously Healthy: Yes Endocrine/Hematology History: Denies: Hx Anticoagulant Therapy, Hx Diabetes, Autoimmune Disease Cardiovascular History: Denies: Hx Hypertension, Hx Myocardial Infarction Respiratory History: Reports: Hx Sleep Apnea - uses CPAP GI History: Reports: Hx Diverticulosis - once w/ abscess requiring surgery, Other GI Disorders - hemorrhoids Denies: Hx Cirrhosis, Hx Crohn's Disease, Hx Gall Bladder Disease, Hx Gastroesophageal Reflux Disease, Hx Gastrointestinal Bleed, Hx Hiatal Hernia, Hx Irritable Bowel, Hx Ulcer History: Denies: Hx Renal Disease Sensory History: Reports: Hx Contacts or Glasses Denies: Hx Legally Blind, Hx Deafness, Hx Hearing Aid Opthamlomology History: Reports: Hx Contacts or Glasses Denies: Hx Legally Blind - Surgical History Surgery Procedure, Year, and Place: diverticular Abscess Removal 2009 - Immunization History Immunizations Up to Date: Yes Infectious Disease History: No Infectious Disease History: Denies: Traveled Outside the [place] in Last 30 Days - Family History Known Family History: Positive: Diabetes - Aunt and Grandfather - Social History Occupation: Employed Full-time Lives: With Family Alcohol Use: Occasionally Hx Substance Use: No Substance Use Type: Reports: None Hx Tobacco Use: No Smoking Status (MU): Never Smoked Tobacco Review of Systems Constitutional: Negative Negative: Fever, Chills, Fatigue Cardiovascular: Negative Respiratory: Negative Positive: Abdominal Pain. Negative: Vomiting, Diarrhea, Nausea Genitourinary: Negative Musculoskeletal: Negative Skin: Negative Neurological: Negative Psychological: Normal All Other Systems Reviewed And Are Negative: Yes Physical Exam Triage Information Reviewed: Yes Vital Signs On Initial Exam: Initial Vitals Temp Pulse Resp BP Pulse Ox 98.3 F 80 16 126/84 98 07/07/18 08:14 07/07/18 08:14 07/07/18 08:14 07/07/18 08:14 07/07/18 08:14 Vital Signs Reviewed: Yes Appearance: Positive: Well-Appearing, Pain Distress - mild, Obese Skin: Positive: Warm, Skin Color Reflects Adequate Perfusion, Dry Head/Face: Positive: Normal Head/Face Inspection Eyes: Positive: Normal, EOMI, Conjunctiva Clear - anicteric sclera ENT: Positive: Normal ENT inspection, Hearing grossly normal, Pharynx normal - mucosa moist Respiratory/Lung Sounds: Positive: Clear to Auscultation, Breath Sounds Present. Negative: Rales, Rhonchi, Wheezes Cardiovascular: Positive: Normal, RRR, S1, S2 Abdomen Description: Positive: Nontender, No Organomegaly, Soft Bowel Sounds: Positive: Present Musculoskeletal: Positive: Normal, Strength/ROM Intact Neurological: Positive: Normal, Sensory/Motor Intact, Alert, Oriented to Person Place, Time, CN Intact II-III Psychiatric: Positive: Normal Diagnostics - Vital Signs Vital Signs Temp Pulse Resp BP Pulse Ox 07/07/18 08:14 98.3 F 80 16 126/84 98 - Laboratory Result Diagrams: 07/07/18 09:24 07/07/18 09:24 Lab Statement: Any lab studies that have been ordered have been reviewed, and results considered in the medical decision making process. Abdominal Pain Fem Course/Dx - Course Course Of Treatment: Spoke w/ YOUSIF Schneider at GI office - pt was seen yesterday and advised to f/u there is sx worsened - he did not. They discussed a general surgery consult outpt if sx persist as his CT persistently show diverticulitis w /o improvement. He has clinical improvement while on anbx, best results recently with augmentin. Jennie advised returning to anbx and surgery consult unless he has acute findings today. Spoke w/ Dr. Bryant - we agree pt does not need emergent surgery today but close f/u w/ gen surg. Spoke w/ Dr. Kwan who states okay to restart anbx and f/u outpt. Provided pt with course of pain med and anbx here. He will call to schedule gen surg consult today outpt and return to ED if danger s/sx present. Offered pt pain control here today but admits he' s mostly here because he wants this "taken care of" (surgery). Will send augmetin and pain med to pharmacy. He and agree to call gen surg today to schedule consult this week. - Diagnoses Provider Diagnoses: Sigmoid diverticulitis Discharge - Sign-Out/Discharge Documenting (check all that apply): Patient Departure - Discharge Plan Condition: Stable Disposition: HOME Prescriptions: Acetaminop/Codeine 30 MG TAB* [Tylenol/Codeine 30 MG TAB*] 1 tab PO Q6H PRN #20 tab MDD 4 PRN Reason: Pain Amoxicillin/Clavulanate TAB* [Augmentin TAB 875*] 875 mg PO BID #20 tab Patient Education Materials: Diverticulosis (ED) Forms: *Work Release Referrals: Abundio Muse MD [Medical Doctor] - Additional Instructions: Restart antibiotic - take probiotics in between doses to prevent c. diff Liquids/soft diet - stay hydrated Take ibuprofen alternating with acetaminophen for pain - if intolerable, may take tylenol with codeine Call General Surgery office today to schedule an appointment for this week - after meeting with GI yesterday, it is recommended that you consult with surgery regarding surgical intervention for your infection - Billing Disposition and Condition Condition: STABLE Disposition: Home
[2018-07-07 09:30] LABS: ABS Basophils 0.1 10^3/ul (0-0.2); ABS Eosinophils 0.2 10^3/ul (0-0.6); ABS Lymphocytes 2.1 10^3/ul (1.0-4.8); ABS Monocytes 0.5 10^3/ul (0-0.8); ABS Neutrophils 3.9 10^3/ul (1.5-7.7); ABS Nucleated RBC 0 10^3/ul; Eosinophil % 3.1 %; Hematocrit 42 % (42-52); Hemoglobin 13.8 g/dl (14.0-18.0); Lymphocyte % 30.9 %; Mean Corpuscular HGB Conc 33 g/dl (31-36); Mean Corpuscular Hemoglobin 28 pg (27-31); Mean Corpuscular Volume 85 fL (80-94); Nucleated Red Blood Cells % 0; Platelet Count 194 10^3/ul (150-450); Red Blood Count 4.93 10^6/ul (4.00-5.40); Red Cell Distribution Width 14 % (10.5-15); White Blood Count 6.8 10^3/ul (3.5-10.8)
[2018-07-07 09:52] LABS: Albumin 3.8 g/dL (3.2-5.2); Albumin/Globulin Ratio 1.1 (1-3); BUN/Creatinine Ratio 11.2 (8-20); C Reactive Protein 10.29 mg/L (<8.01); Calcium 9.1 mg/dL (8.6-10.3); EGFR Non-African American 95.7 (>60); Globulin 3.6 g/dL (2-4); Magnesium 2.1 mg/dL (1.9-2.7); Potassium 4.5 mmol/L (3.5-5.0); Total Bilirubin 0.6 mg/dL (0.2-1.0); Total Protein 7.4 g/dL (6.4-8.9)
[2018-07-07 10:59] VITALS: BP 124/66
== END 2018-07-07 10:59 | disposition home or self-care (01) ==
LOC: ED 08:05
DX: K57.92 Diverticulitis of intestine, part unspecified, without perforation or abscess without bleeding (principal)
CPT/HCPCS: 36415; 80053; 82150; 83605; 83690; 83735; 85025; 86140; 99282

== ENCOUNTER 2021-03-28 05:40 | Inpatient (IN) ==
[2021-03-28] MEDS ORDERED: Famotidine IV 10 MG/ML 2 ml VIAL (20 mg) IV ONE (06:00)
[2021-03-28] MEDS ORDERED: Buffered Lidocaine 1% SYRIN 1 ml INTRADERM ONE (06:00)
[2021-03-28] MEDS ORDERED: Lactated Ringers 1000 ml BAG 1,000 ML IV SCH (06:00)
[2021-03-28] MEDS ORDERED: ceFAZolin 1 GM ADVAN 1 GM ADDV.VIAL IVPB ONE (06:19)
[2021-03-28] MEDS ORDERED: Heparin 5000 UNITS/ML 1 mL VIAL ONE (06:19)
[2021-03-28] MEDS ORDERED: ceFAZolin 2 GM in NS PREMIX 2 GM/100 ML BAG IVPB ONE (06:20)
[2021-03-28] MEDS ORDERED: Famotidine IV 10 MG/ML 2 ml VIAL (20 mg) ONE (06:20)
[2021-03-28] MEDS ORDERED: Bupivacaine 0.25% EPI 200,000 30 ML SDV ONE (06:42)
[2021-03-28] MEDS ORDERED: fentaNYL 250 mcg/5 ml 50 MCG/ML 5 ml VIAL (250 MCG) ONE (07:10)
[2021-03-28] MEDS ORDERED: Midazolam 2 mg/2 ml VIAL 1 mg/ml 2 ml VIAL (2 mg) ONE (07:10)
[2021-03-28] MEDS ORDERED: Rocuronium 50 mg VIAL 10 mg/ml 5 ml VIAL (50 mg) ONE ×2 (07:10→09:22)
[2021-03-28] MEDS ORDERED: Propofol 10 MG/ML 20 ML BTL ONE (07:15)
[2021-03-28] MEDS ORDERED: Lidocaine 2% PF 5 ML VIAL ONE (07:15)
[2021-03-28] MEDS ORDERED: Dexamethasone IV 4 MG/ML VIAL 1 ml VIAL ONE (08:20)
[2021-03-28] MEDS ORDERED: Naloxone 0.4 mg VIAL 0.4 mg/ml 1 ml VIAL IV PRN (08:25)
[2021-03-28] MEDS ORDERED: DiMENhydriNATE IV 50 mg/ml 1 ml VIAL IV PUSH PRN (08:25)
[2021-03-28] MEDS ORDERED: Ondansetron 4 mg VIAL 2 MG/ML 2 ml VIAL IV PRN ×2 (08:25→10:53)
[2021-03-28] MEDS ORDERED: HYDROmorphone 1 MG/1 ML SYRINGE ONE ×2 (08:30→09:41)
[2021-03-28] MEDS ORDERED: Ondansetron 4 mg VIAL 2 MG/ML 2 ml VIAL ONE ×2 (08:49→11:45)
[2021-03-28] MEDS ORDERED: Sugammadex 500 MG/5 ML 5 ml VIAL IV PUSH ONE (08:49)
[2021-03-28] MEDS ORDERED: Acetaminophen IV 1 GM/100ML 100 ML IV ONE (10:18)
[2021-03-28] MEDS ORDERED: HYDROmorphone 0.5 MG/0.5 ML SYRINGE IV SLOW PU PRN (10:53)
[2021-03-28] MEDS ORDERED: HYDROcodone/ACET. 7.5/325 LIQ 15 ML UDC PO PRN (10:53)
[2021-03-28] MEDS ORDERED: DiMENhydriNATE IV 50 mg/ml 1 ml VIAL ONE (11:24)
[2021-03-28] MEDS ORDERED: fentaNYL 100 mcg/2 ml 50 MCG/ML VIAL ONE (11:55)
[2021-03-28] MEDS: fentaNYL 100 mcg/2 ml 50 MCG/ML VIAL IV PRN ×2 (12:02→12:30)
[2021-03-28] MEDS: Lactated Ringers 1000 ml BAG 1,000 ML IV SCH ×2 (13:15→20:20)
[2021-03-28] MEDS: Heparin 5000 UNITS/ML 1 mL VIAL SUBCUT SCH ×2 (15:53→22:07)
[2021-03-28] MEDS: Famotidine IV 10 MG/ML 2 ml VIAL (20 mg) IV SLOW PU SCH (20:55)
[2021-03-28] MEDS: HYDROmorphone 1 MG/1 ML SYRINGE IV SLOW PU PRN (20:57)
[2021-03-29] MEDS: HYDROmorphone 1 MG/1 ML SYRINGE IV SLOW PU PRN (01:40)
[2021-03-29] MEDS: Lactated Ringers 1000 ml BAG 1,000 ML IV SCH (03:11)
[2021-03-29] MEDS: Heparin 5000 UNITS/ML 1 mL VIAL SUBCUT SCH (05:51)
[2021-03-29] MEDS: Famotidine IV 10 MG/ML 2 ml VIAL (20 mg) IV SLOW PU SCH (09:27)
[2021-03-29] MEDS ORDERED: D5W 1/2 NS KCl 20 meq 1000 ml 1,000 ML IV SCH (11:00)
[2021-03-29 11:14] VITALS: BP 117/75
[2021-03-31] MEDS ORDERED: Scopolamine PATCH Remove NOTE PATCH OFF ONE (08:26)
== END 2021-03-29 15:00 | disposition home or self-care (01) | DRG 403 ==
LOC: AA 05:40 → SSU 13:08
PROVIDERS: ADMIT Surgery; ATTEND Surgery